=== PATIENT | female | born 1990 ===

== ENCOUNTER 2018-08-05 07:46 | Observation (INO) | payer SELFPAY ==
[2018-08-05] VITALS (13 sets, daily range): BP systolic 97–114; BP diastolic 50–68
[~2018-08-05] VITALS: Ht 160 cm; Wt 50.3 kg
[~2018-08-05 07:46] MED LIST: NKM
[2018-08-05] MEDS ORDERED: LR 1000ml 1,000 ML IVLG SCH (07:48)
--- NOTE | 2018-08-05 07:48 | Anethesia Preoperative Eval ---
Anesthesia Pre-op PMH/ROS General Date of Evaluation: Aug 05, 2018 Anesthesiologist: Navarro ASA Score: ASA 2 Mallampati Score Class I : Soft palate, uvula, fauces, pillars visible Class II: Soft palate, uvula, fauces visible Class III: Soft palate, base of uvula visible Class IV: Only hard plate visible Mallampati Classification: Class II Surgeon: Victor Hugo Diagnosis: Bilateral buttock cellulitis Surgical Procedure: Bilateral buttock I&D Anesthesia History: none Family History: no anesthesia problems Allergies: Coded Allergies: No Known Allergies (Unverified , 08/04/18) Medications: see eMAR Patient NPO?: Yes NPO Date: Aug 05, 2018 NPO Time: 22:00 Past Medical History Cardiovascular: Denies: HTN, CAD, CA, valve dz, arrhythmia, other Pulmonary: Denies: asthma, COPD, ARSENIO, other Gastrointestinal/Genitourinary: Denies: GERD, CRI, ESRD, other Neurologic/Psychiatric: Reports: depression/anxiety; Denies: dementia, CVA, TIA, other Endocrine: Denies: DM, hypothyroidism, steroids, other HEENT: Denies: cataract (L), cataract (R), glaucoma, [place] (L), [place] (R), other Hematology/Immune: Denies: anemia, DVT, bleeding disorder, other Musculoskeletal/Integumentary: Reports: other - LBP; Denies: OA, RA, DJD, DDD, edema PSxH Narrative: bilateral breast augmentation Anesthesia Pre-op Phys. Exam Physician Exam see chart Constitutional: NAD Cardiovascular: RRR Respiratory: CTA Airway Exam Mallampati Score: Class II MO: full ROM: full Teeth: intact Anesthesia Pre-op A/P Labs see chart Studies Pre-op Studies: EKG - sr Risk Assessment & Plan Assessment: ASA II Plan: GA Status Change Before Surgery: No Pre-Antibiotics Drug: TBD Given Within 1 Hr of Incision: Yes Paola Sumner MD Aug 05, 2018 07:48
[2018-08-05] MEDS ORDERED: Ketorolac 30mg Inj IV PRN (08:00)
[2018-08-05] MEDS ORDERED: fentaNYL 100 mcg/2 mL IV PRN (08:00)
[2018-08-05] MEDS ORDERED: LORazepam Inj 2mg/ml 1ml IV PRN (08:00)
[2018-08-05] MEDS ORDERED: Metoclopramide 10mg/2ml Inj IVP PRN (08:00)
[2018-08-05] MEDS ORDERED: Midazolam 2mg/2ml Inj IVP PRN (08:00)
[2018-08-05] MEDS ORDERED: DiphenhydrAMINE 50mg/ml Inj IVP PRN ×2 (08:00→12:15)
[2018-08-05] MEDS ORDERED: Hydromorphone 0.5mg/0.5ml inj IVP PRN (08:00)
--- NOTE | 2018-08-05 08:42 | Pre-Procedure Note/Attestation ---
Pre-Procedure Note/Attestation Complete Prior to Procedure Planned Procedure: bilateral Procedure Narrative: partial debridement of bilateral buttock and back necrotic soft tissue and flap closure Indications for Procedure Pre-Operative Diagnosis: bilateral buttock and back necrotic soft tissue Attestation I attest that I discussed the nature of the procedure; its benefits; risks and complications; and alternatives (and the risks and benefits of such alternatives ), prior to the procedure, with the patient (or the patient's legal petroleum products sales representative). I attest that, if there was a reasonable possibility of needing a blood transfusion, the patient (or the patient's legal petroleum products sales representative) was given the [facility] standardized written summary, pursuant to the [place] Blood Safety Act ([place] Health and Safety Code # 1645, as amended). I attest that I re-evaluated the patient just prior to the surgery and that there has been no change in the patient's H&P, except as documented below: Luda Gay M.D. Aug 05, 2018 08:42
[2018-08-05] MEDS ORDERED: NeoSporin Gu Irrig 1ml Amp IRRIG ONE (08:55)
[2018-08-05] MEDS ORDERED: Bacitracin 50000 Units Vial ONE (08:55)
[2018-08-05] MEDS ORDERED: Propofol 200mg/20ml IV ONE (08:58)
[2018-08-05] MEDS ORDERED: fentaNYL 100 mcg/2 mL IV ONE (08:58)
[2018-08-05] MEDS ORDERED: Lidocaine 1% MPF 10mg/ml 5ml ONE (08:58)
[2018-08-05] MEDS ORDERED: Midazolam 2mg/2ml Inj ONE (08:58)
[2018-08-05] MEDS ORDERED: NS Irrig 1000ml ONE (09:00)
[2018-08-05] MEDS ORDERED: Sterile Water Irrig 1000ml IRRIG ONE (09:00)
[2018-08-05] MEDS ORDERED: LR 1000ml ONE (09:00)
[2018-08-05] MEDS ORDERED: Zemuron 50mg/5ml Inj IV ONE (09:08)
[2018-08-05] MEDS ORDERED: NS Irrig 1000ml IRRIG ONE (09:47)
[2018-08-05] MEDS ORDERED: Dexamethasone 4mg/ml vial ONE (11:38)
[2018-08-05] MEDS ORDERED: Ketorolac 30mg Inj ONE (11:38)
[2018-08-05] MEDS ORDERED: Metoclopramide 10mg/2ml Inj ONE (11:38)
--- NOTE | 2018-08-05 12:09 | Operative Note - PDOC ---
Operative Note Operative Note Date of Operation/Procedure: Aug 05, 2018 Pre-op Diagnosis: bilateral buttock and back necrotic soft tissue Procedure: partial debridement of necrotic b/l buttock and back necrotic tissue and flap closure Post-op Diagnosis: same Post-op Diagnosis: same as pre-op Surgeon: luisa Cans Vacuum Tester: satish Anesthesiologist: chantale Anesthesia: general Specimen: yes - for gross only; b/l buttock and back necrotic soft tissue Complications: none Condition: stable Estimated Blood Loss: volume - 350 Drains: SHERYL Implant(s) used?: No Indications for Procedure symptomatic necrotic soft tissue Description of Procedure see dictation Luda Gay M.D. Aug 05, 2018 12:09
--- NOTE | 2018-08-05 12:14 | Immediate Post-Op Evaluation ---
Immediate Post-Op Evalulation Immediate Post-Op Evalulation Procedure: Bilateral buttock I&D with back and flap closure Date of Evaluation: Aug 05, 2018 Time of Evaluation: 12:16 IV Fluids: 1.4L Blood Products: 0 Urinary Output: 100 Blood Pressure Systolic: 98 Blood Pressure Diastolic: 54 Pulse Rate: 91 Respiratory Rate: 16 O2 Sat by Pulse Oximetry: 100 Temperature (Fahrenheit): 97.2 Pain Score (1-10): 0 Nausea: No Vomiting: No Complications 0 Patient Status: awake, reacts, patent, none Hydration Status: adequate Drug: Ancef 1g Given Within 1 Hr of Incision: Yes Time Given: 09:30 Paola Sumner MD Aug 05, 2018 12:14
[2018-08-05] MEDS ORDERED: Naloxone 0.4mg/ml Inj IVP PRN (12:15)
[2018-08-05] MEDS ORDERED: Rate Change PCA 1 Each MISC PRN (12:15)
[2018-08-05] MEDS ORDERED: LORazepam 1mg tab ORAL PRN (12:15)
[2018-08-05] MEDS ORDERED: PCA HYDROmorphone 1mg/ml 30 ML IV PRN (12:15)
[2018-08-05] MEDS ORDERED: PCA Education Pamphlet MISC ONE (12:30)
[2018-08-05] MEDS ORDERED: PCA HYDROmorphone 1mg/ml 30 ML IV ONE (12:32)
[2018-08-05] MEDS ORDERED: oxyCONTIN 10mg tab ORAL PRN (14:00)
[2018-08-05] MEDS: Ampicillin/Sulbactam Sod 3 GM in NS 110 ML IVPB SCH ×2 (15:14→21:53)
[2018-08-05] MEDS: LR 1000ml 1,000 ML IV SCH ×2 (15:19→21:04)
[2018-08-05] MEDS: Heparin 5000 units/ml inj SUBQ SCH ×2 (15:20→21:54)
--- NOTE | 2018-08-05 17:30 | NUR ---
NURSE NOTES: Patient arrived to unit at 1340 via hospital bed. Patient alert, oriented x4, calm and appropriate. Vitals stable. Patient denies pain/NV/SOB. O2 3L per NC in place. IV infusing to LFA, LR at 125 ml/hr. GYNECOLOGY TEACHER (Diladud) in place, patient instructed on use, verbalized understanding. SHERYL drains L/R in intact. Upper buttocks dressing intact. Wound care vac at bedside, not connected, ready for tomorrow. Guy draining yellow/clear urine to gravity. Bilateral SCDs in place. RN instructed on IS use. Call light and GYNECOLOGY TEACHER button in place, will continue to assess.
[2018-08-05] MEDS: PCA shift volume MISC SCH (19:00)
--- NOTE | 2018-08-05 19:45 | NUR ---
NURSE NOTES: Received report from JULES Dos Santos and rounds done. Received pt in bed, A&OX4, pain level 0/10. CONVEX GRINDER setting checked and verified. Surgical dressing C/D/I wound vac inplace no leak noted. Instructed pt to lay on buttocks 4hours per 24 hours max 2 hours at a time. Pt verbalized understanding. Assisted pt to lay on right lateral side with pillows support on back. Instructed pt to use IS while awake every 1 x 10. Verbalized understanding. SHERYL R and L with serosanguineous drainage. Bed in low position and locked, side rails up x 2, call light within reach. Will continue to monitor.
--- NOTE | 2018-08-05 20:07 | NUR ---
HAND-OFF: Report given to Kevin Pearson pt in stable condition. total SHERYL drain out put on the left side: 120ml total SHERYL drain out put on the right side: 0ml total wound vac out out:0ml
[2018-08-06] VITALS: BP 125/59
[2018-08-06 04:00] VITALS: BP 97/62
[2018-08-06] MEDS: LR 1000ml 1,000 ML IV SCH (04:19)
[2018-08-06] MEDS: Ampicillin/Sulbactam Sod 3 GM in NS 110 ML IVPB SCH (05:57)
[2018-08-06] MEDS: Heparin 5000 units/ml inj SUBQ SCH (06:05)
--- NOTE | 2018-08-06 06:48 | NUR ---
NURSE NOTES: Pt refused licea catheter taken out at this time. Pt requested to remove licea after breakfast. Will endorse to next nurse.
[2018-08-06] MEDS: PCA shift volume MISC SCH (07:27)
--- NOTE | 2018-08-06 07:28 | NUR ---
HAND-OFF: Report given to JULES Dos Santos. Pt in stable condition.
[2018-08-06 07:35] LABS: BASOPHILS % (AUTO) 0.4 % (0.0-2.0); EOSINOPHILS % (AUTO) 0.3 % (0.0-3.0); HEMATOCRIT 30.7 % (37.0-47.0); HEMOGLOBIN 10.5 G/DL (12.0-16.0); LYMPHOCYTES % (AUTO) 21.8 % (20.0-45.0); MEAN CORPUSCULAR VOLUME 91 FL (80-99); MONOCYTES % (AUTO) 7.9 % (1.0-10.0); NEUTROPHILS % (AUTO) 69.6 % (45.0-75.0); PLATELET COUNT 215 K/UL (150-450); RED BLOOD COUNT 3.39 M/UL (4.20-5.40); RED CELL DISTRIBUTION WIDTH 11.9 % (11.6-14.8); WHITE BLOOD COUNT 12.2 K/UL (4.8-10.8)
[2018-08-06 08:00] VITALS: BP 94/63
--- NOTE | 2018-08-06 08:00 | NUR ---
NURSE NOTES: Received report from Kevin Finch. pt a/a/o x4 laying in bed with no signs of distress or other issues at this time. CONCESSIONIST in place but pt is not using it 28.7ml. IV on the left FA gauge #18 running LR@125ml/hr. bilateral SHERYL drains. SHERYL#1 L (total out put during the assistant casino shift manager) 190ml SHERYL#2 right: 110ml. total Guy cath out put: 1350ml. call light with in reach. bed in lowest position. side rales up x2. plan: to d/c home today. I will f/u as needed.
--- NOTE | 2018-08-06 09:12 | General Progress Note ---
Subjective Date patient seen: Aug 06, 2018 Time patient seen: 09:00 Allergies: Coded Allergies: No Known Allergies (Unverified , 08/04/18) Subjective pt doing well; reports resolution of preop local and systemic sxs (+) OOB AF,VSS PE: flaps viable; (-) collections (-)signs infections JPs SS appropraite provena in place A/P 1. d/c home with provena and drains; SHERYL teaching; strict I&O 2. home rx cipro 500 bid x 14 d and percocet will be sent to pharmacy 3. minimal activity; only 4 hrs/24 hrs on buttocks, max 2 hrs at a time; no sitting except on toilet or in car when necessary 4. no showers; sponge only 5. Dr Faith will be following up and covering for me; pt to see Dr Faith next Sat 08/14 call [phone] for appt Objective Last 24 Hour Vital Signs Date Time Temp Pulse Resp B/P (MAP) Pulse Ox O2 Delivery O2 Flow Rate FiO2 08/06/18 08:00 98.1 83 19 94/63 (73) 100 08/06/18 04:00 18 08/06/18 04:00 97.9 89 19 97/62 (74) 98 08/06/18 00:00 97.7 68 17 125/59 (81) 94 08/06/18 00:00 18 08/05/18 20:00 97.8 81 19 100/65 (77) 97 08/05/18 20:00 18 08/05/18 14:48 Nasal Cannula 3.0 08/05/18 13:30 99.0 90 19 113/55 100 Nasal Cannula 3 08/05/18 13:20 18 08/05/18 13:15 83 18 97/52 100 Nasal Cannula 3 08/05/18 13:09 99.0 08/05/18 13:05 90 17 100/51 100 Nasal Cannula 3 08/05/18 13:05 17 08/05/18 13:00 89 18 101/51 100 Nasal Cannula 3 08/05/18 12:50 95 23 112/64 100 Nasal Cannula 3 08/05/18 12:50 23 08/05/18 12:38 17 08/05/18 12:35 96 17 114/68 100 Nasal Cannula 3 08/05/18 12:30 102 18 103/61 100 Nasal Cannula 3 08/05/18 12:21 108 15 109/55 100 Simple Mask 6 08/05/18 12:16 109 16 110/50 100 Simple Mask 6 08/05/18 12:14 91 16 100 08/05/18 12:11 97.2 91 16 98/54 100 Simple Mask 6 Intake and Output 08/05/18 08/06/18 19:00 07:00 Intake Total 2750 ml 1870 ml Output Total 150 ml 1650 ml Balance 2600 ml 220 ml Intake Oral 0 ml 400 ml IV Total 2750 ml 1470 ml Output Urine Total 100 ml 1350 ml Drainage Total 300 ml Estimated Blood Loss 50 ml # Voids 1 Laboratory Tests 08/06/18 06:15: White Blood Count 12.2H, Red Blood Count 3.39L, Hemoglobin 10.5L, Hematocrit 30.7L, Mean Corpuscular Volume 91, Mean Corpuscular Hemoglobin 30.9, Mean Corpuscular Hemoglobin Concent 34.1, Red Cell Distribution Width 11.9, Platelet Count 215, Mean Platelet Volume 6.9, Neutrophils (%) (Auto) 69.6, Lymphocytes (% ) (Auto) 21.8, Monocytes (%) (Auto) 7.9, Eosinophils (%) (Auto) 0.3, Basophils ( %) (Auto) 0.4 Height (Feet): 5 Height (Inches): 3.00 Weight (Pounds): 111 Luda Gay M.D. Aug 06, 2018 09:12
--- NOTE | 2018-08-06 09:15 | NUR ---
NURSE NOTES: Licea catheter discontinued as ordered at 0840, licea output 100 ml. RN encouraged oral hydration. Patient voided in bathroom with RN supervison. Patient ambulatory in halls with RN assist. Patient denies pain. JPs/Wound Vac remain intact. Patient remains safe.
[2018-08-06] MEDS ORDERED: Tubing IV Secondary IV ONE (10:59)
[2018-08-06] MEDS ORDERED: LR 1000ml ONE ×2 (10:59)
--- NOTE | 2018-08-06 11:00 | NUR ---
NURSE NOTES: Discharge instructions reviewed with patient and mother, verbalize understanding. Patient instructed on SHERYL care, draining, documenting output, how to milk the SHERYL tubing and how to release all air from SHERYL bulb before closing cap, patient returned demonstration. Bilateral SHERYL site dressings changed. Supplies and measuring containers provided. Portable wound vac connected, ore charger given to patient. IV catheter removed. Patient sent downstairs via wheelchair and assisted into vehicle. All patient belongings sent home with patient. Patient stable.
--- NOTE | 2018-08-06 11:26 | NUR ---
NURSE NOTES: Received order for discharge. Discharge instruction and belongings given to patient. IV removed prior to d/c. instructed pt and pt's mother how to care for SHERYL drain. Also given supplies to record output. SHERYL dressing changed prior to d/c. pt left the floor via w/c with no signs of distress or other issues at this time. Mother will provide transportation. Total right SHERYL drain output during my shift:90ml total left SHERYL drain: 10ml
[2018-08-06 15:20] VITALS: BP 96/54
--- NOTE | 2018-08-06 15:20 | 48 Hour Post Anesthesia Eval ---
Post Anesthesia Evaluation Procedure: Bilateral buttock I&D with back and flap closure Date of Evaluation: Aug 06, 2018 Time of Evaluation: 15:19 Blood Pressure Systolic: 96 0: 54 Pulse Rate: 72 Respiratory Rate: 20 Temperature (Fahrenheit): 97.6 O2 Sat by Pulse Oximetry: 98 Airway: patent Nausea: No Vomiting: No Pain Intensity: 2 Hydration Status: adequate Cardiopulmonary Status: stable Mental Status/LOC: patient returned to baseline Follow-up Care/Observations: n/a Post-Anesthesia Complications: none Follow-up care needed: ready to discharge Karl Arango MD Aug 06, 2018 15:20
--- NOTE | 2018-08-09 16:45 | Operative Note - Dictated ---
DATE OF OPERATION: 08/05/2018 SURGEON: Luda Gay M.D. FITTER/WELDER SURGEON: Yovany Faith M.D. ANESTHESIOLOGIST: Paola Briceño M.D. ANESTHESIA: General tracheal tube anesthesia. PREOPERATIVE DIAGNOSES: 1. 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 2. Chronic cellulitis of bilateral buttocks. POSTOPERATIVE DIAGNOSES: 1. 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 2. Chronic cellulitis of bilateral buttocks. PROCEDURE PERFORMED: 1. Staged partial removal of foreign material from bilateral buttocks, back, and hips. 2. Radical resection of 195 square centimeters of right buttock necrotic soft tissue mass. 3. Radical resection of 156 square centimeters of left buttock necrotic soft tissue mass. 4. Radical resection of 60 square centimeters of right back necrotic soft tissue mass. 5. Radical resection of 65 square centimeters of left back necrotic soft tissue mass. 6. Debridement of bilateral necrotic gluteus sarah muscles. 7. Advancement flap closure of 26 centimeter open wound. SPECIMENS: 1. Left back necrotic soft tissue mass. 2. Right back necrotic soft tissue mass. 3. Left buttock necrotic soft tissue mass. 4. Right buttock necrotic soft tissue mass. The specimens were sent gross to the pathologist and then for discard. ESTIMATED BLOOD LOSS: 300 mL. COMPLICATIONS: None. CONDITION: Stable. DRAINS: A 19-[place] Victor Manuel x2. INDICATIONS FOR PROCEDURE: This is a 28-year-old female who is scheduled today for partial removal and debridement of bilateral buttocks, hip, and back necrotic soft tissue as well as advancement flap closure over drains. The patient has a history of some foreign material, likely silicone injected to bilateral buttocks several years ago. The patient has had local as well as systemic complaints such as low back pain, buttock pain, burning, itching, bilateral lower extremity paresthesias, occasional shortness of breath, anxiety, chronic fatigue. She has been worked up for MAXWELL syndrome and her blood work is pending. Preoperatively, the patient was seen by a medical doctor and optimized. She was also seen by psychiatrist preoperatively so that she understands the following. 1. That this is a partial staged removal and debridement of foreign material that was injected into her buttocks and hips and there is no guarantee should get better. 2. I do not know how much I am going to take out, but I am going to take out whatever is possible in a safe and effective manner. 3. There is a possibility that she may get worse in the future and the material still continues to migrate and if it may have already migrated, may continue to migrate in the future. 4. It is impossible for me to remove all of the material and it is unknown how much I will takeout and again I will take out whatever safe and possible. 5. There is a possibility this could come out cosmetically disfiguring and there is a chance it could be a poor cosmetic outcome. 6. There is a chance she may need multiple surgeries over the years. The proposed benefits of the operation would be to debulk and remove as much of the foreign material as possible, which will likely take the pressure off of the nerves of her spine, her legs, her buttocks, and back and relieve her severe pain and symptoms and should improve her immune system, so she is not as prone to recurrent infections and opportunistic infections and hopefully prevent further migration of the material to other parts of the body. The patient has had a chronic low-grade cellulitis as well as some soft tissue hardening in areas of hyperpigmentation and erythema of bilateral buttocks and hips. MRIs that were previously done showed significant soft tissue infiltration of bilateral buttocks as well as some involvement of the gluteus sarah muscles and some migration to L4 of the lumbar spine over the paraspinal muscles. It was reiterated to the patient the possible risks including the wound may break down. She may need multiple surgeries over the next many years. Her buttocks may come out significantly deformed. I told her conversely if she did nothing, she is at risk for her entire buttocks necrosing, which would require much more radical surgery. The risks and benefits of the proposed operation including, but not limited to, bleeding, hematoma, infection, seroma, DVT, PE, [place], , necrosis of skin flaps, open wounds, delayed healing, hypertrophic scarring, keloid scarring, skin necrosis, damage to sensory and motor nerves, difficulty ambulating, chronic pain, and embolization of the silicone to other parts of the body were discussed with the patient and all questions were answered in the preop holding area. I correlated the patient's markings with their physical exam findings of the MRI findings. DESCRIPTION OF PROCEDURE: The patient was taken the operating room. Prior to the induction of general anesthesia in the supine position, perioperative antibiotics were given. SCDs were placed on bilateral lower extremities. She was then flipped in a prone position. After appropriate position and padding of her arms and the rest of the body, the markings were made symmetric and reinforced and the area was prepped and draped in the usual clean and sterile manner. The anus was blocked with a blue towel and [place]ob[place] dressing. We started the operation by making an incision with a number 10 scalpel. We cut out the skin in an elliptical manner. We then dissected down through the skin with electrocautery, dissected all the way down to the deep muscle fascia of the gluteus sarah muscle and the paraspinal muscles. We then elevated 3 fasciocutaneous flaps. We elevated the superiorly based lumbar fasciocutaneous flap about 10 centimeter centrally and superiorly correlating to the MRI exam as well as the physical exam findings of fluctuant tender mass of the lumbar spine. We then elevated and delayed left and right inferiorly-based gluteal fasciocutaneous flaps in a plane just deep to the deep muscle fascia and then in a plane just deep to Hollie's fascia. We dissected the skin flap off the necrotic soft tissue mass with a combination of sharp dissection and electrocautery. There was a significant amount of fat necrosis, scar tissue, and silicone granulomas from bilateral buttocks and back that was removed. There was 156 square centimeters of left buttock, 195 square centimeters of right buttock, 65 square centimeters left back, and 60 square centimeters of right back necrotic soft tissue mass that was debrided and then sent to the lab for gross discard. We then pulse jet lavage irrigated and applied 2 liters of antibiotic irrigation. We ensured hemostasis with electrocautery. After doing this, we skeletonized the paraspinal muscles and the gluteus sarah muscle. There was some gluteus sarah involvement of the muscles. This was debrided by electrocautery and we thompson-picked through the muscle and broke any silicone granulomas. We did a significant debridement. However, there was still a significant amount of foreign material that was still present and necrosis of the soft tissues inferiorly, which I explained to the patient preoperatively in a 1-stage operation, I would not be able to take out at this time because of the high risk of bleeding and skin flap necrosis, so at this point, we tailor tacked the skin. There was a 26 square centimeter wound. There was a small dog ear on the right side, which was carried out. We left two 19-[place] Victor Manuel drains in the dependent position taken out through a separate superior lateral back incision secured in place with a 2-0 silk suture. I then used 0 Vicryl and did advancement flap closure and progressive tension suturing. I then closed the 26 centimeter open wound of the back with 0 Vicryl for Hollie's fascia, 2-0 Vicryl for the deep dermis, and a running 3-0 Monocryl subcuticular layer and placed a Prevena incisional wound VAC. The drains were secured in place. The patient was flipped over, extubated, and transferred to recovery room in stable condition. Luda Gay M.D. DR: DB JOB#: [id number] CC:
--- NOTE | 2018-08-12 15:37 | Discharge Summary ---
Discharge Summary Discharge Summary _ DATE OF ADMISSION: 08/05/2018 DATE OF DISCHARGE: 08/06/2018 DISCHARGED BY: Dr. Luda Gay BRIEF HOSPITAL COURSE: Patient is a 28-year-old female who was admitted for partial removal and debridement of bilateral buttock, hip and back necrotic soft tissue as well as advancement flap closure over drains. Patient has history of foreign material, likely silicone injected to bilateral buttocks several years ago. She had local as well as systemic complaints such as low back pain, buttock pain, burning, itching, bilateral lower extremity paresthesia, occasional shortness of breath, anxiety and chronic fatigue. Patient was admitted and underwent partial stage removal and debridement of foreign material. She tolerated procedure well. Postoperatively she was given postop care. She was placed on SCDs for DVT prophylaxis. She was given pain management. Vital signs were stable. She was eventually discharged home with Provena and drains. To continue ciprofloxacin 500 mg p.o. twice daily times 14 days and Percocet for pain control. She was given postop instructions. Patient to follow-up Dr. Faith on 08/14/2018. FINAL DIAGNOSES: Bilateral buttock, hip and back soft tissue necrosis secondary to foreign bodies Chronic cellulitis of bilateral buttocks Stage partial removal of foreign material from bilateral pedicle, and hips Debridement of bilateral necrotic gluteus sarah muscles Advancement flap closure of 26 cm open wound (Refer to operative report) DISPOSITION: Patient was discharged home. DISCHARGE INSTRUCTIONS: Follow-up on 08/14/2018. I have been assigned to dictate discharge summary on this account, and I was not involved in the patient's management. Jess Silva NP Aug 12, 2018 15:37
== END 2018-08-06 11:00 | disposition home or self-care (01) ==
LOC: SUR 07:46 → 3E 13:30
DX: M79.5 Residual foreign body in soft tissue (principal); I96 Gangrene, not elsewhere classified; L03.317 Cellulitis of buttock
CPT/HCPCS: 11043; 11046; 14001; 15600; 20525; 36415; 81025; 85025; 86850; 86900; 86901; 87081; G0378; J0295; J0690; J1100; J1170; J1644; J1885; J2250; J2405; J2704; J2765; J3010; 94003; 94150